=== PATIENT | female | born 1980 | race Caucasian/White ===

== ENCOUNTER → 2016-04-25 | Day surgery (SDC) | payer BC, OTHER ==
[2016-04-24 10:51] VITALS: BMI 47.0
[~2016-04-25] VITALS: Ht 157.5 cm; Wt 115.9 kg
[~2016-04-25] MED LIST: CLB/200 PO; LIDOCAINE HCL 2% 2 ML VIAL (20MG/ML) ONE; LISI-461 PO; MIDAZOLAM HCL 1 MG/ML 2ML VIAL ONE; MULT-506 PO; NXM/40 PO; PROPOFOL IV EMULSION 10 MG/ML 20 ML VIAL IV ONE; RANI300T2 PO
[2016-04-25 08:02] VITALS: Ht 157.5 cm; Wt 115.9 kg
[2016-04-25 08:07] VITALS: TEMP 36.5
--- NOTE | 2016-04-25 09:02 | Endo History and Physical ---
History & Physical Date of Service: Apr 25, 2016. Chief Complaint: GERD AND ACID REFLUX UP AT NIGHT WITH SYMPTOMS Referring Physician: DR FRANCES History of Present Illness GERD Past Surgical History Hx Cardiac Surgery: No Hx Internal Defibrillator: No Hx Pacemaker: No Hx Abdominal Surgery: Yes ( X 2) Hx of Implantable Prosthesis: No Hx Post-Op Nausea and Vomiting: Yes Hx Cancer Surgery: No Hx Thoracic Surgery: No Hx Orthopedic: Yes (RT/LEFT CTR) Hx Urinary Tract Surgery: No Family History Polyp, IBD Social History Smoking Status: Never Smoker Hx Substance Use: Yes (MARIJUANA IN PAST) Hx Alcohol Use: Yes (OCCASIONALLY) Allergies Coded Allergies: NO KNOWN DRUG ALLERGIES (Verified Allergy, Unknown, ., 04/25/16) Current Medications Reported Home Medications Medications Dose Route/Sig Max Daily Dose Days Date Category Multivitamin (Multivitamins) Tab 1 Tab PO QAM 04/24/16 Reported Zantac (Ranitidine HCl) 300 Mg Tab 300 Mg PO HS 04/24/16 Reported Nexium (Esomeprazole Magnesium) 40 Mg Capcr 40 Mg PO QPM 04/24/16 Reported Zestril (Lisinopril) 10 Mg Tab 10 Mg PO QPM 04/24/16 Reported CeleBREX (Celecoxib) 200 Mg Cap 200 Mg PO QPM 04/24/16 Reported Vital Signs Weight (Kilograms): 115.91 Height (Feet): 5 Height (Inches): 2 Date Time Temp Pulse Resp B/P Pulse Ox O2 Delivery O2 Flow Rate FiO2 04/25/16 08:07 36.5 62 20 119/78 97 Room Air Physical Exam General Appearance: no apparent distress Respiratory/Chest: Respiratory effort: no dyspnea Auscultation: breath sounds normal Cardiovascular: Apical Impulse: not displaced Abdomen: Inspection & Palpation: soft Assessment and Plan Reflux - EGD
--- NOTE | 2016-04-25 09:38 | GI REPORT ---
Procedure Date: 04/25/2016 8:59 AM Procedure: Upper GI endoscopy Indications: Follow-up of esophageal reflux - pt describes late nigth awakening with reflux symptoms, on once daily PPI therapy. Medicines: See the Anesthesia note for documentation of the administered medications Complications: Pt had brief hypoxia during procedure that resolved with nasal airway and supplemental oxygen via mask. Estimated Blood Loss: Estimated blood loss: none. Procedure: Pre-Anesthesia Assessment: - ASA Grade Assessment: III - A patient with severe systemic disease. After obtaining informed consent, the endoscope was passed under direct vision. Throughout the procedure, the patient's blood pressure, pulse, and oxygen saturations were monitored continuously. The Scope was introduced through the mouth, and advanced to the second part of duodenum. The upper GI endoscopy was accomplished without difficulty. The patient tolerated the procedure. Findings: There were faint rings in the lower third of the esophagus. The GE junction was at 35 cm. There was a moderate ring at the GE junction. There was some moderate erythema at the GE junction, although no erosions were seen. There was no hiatal hernia. There was a small amount of bilious fluid in the stomach. The stomach mucosa was normal. The duodenum was normal. Biopsies taken from proximal and distal esophagus. Impression: Faint rings in lower esophagus that may be consistent with reflux, PPI- responsive eosinophilic esophagitis, or eosinophlic esophagitis. Schatzki's ring. Non-erosive esophagitis. Recommendation: - Discharge patient to home. Consider increasing nexium to twice daily, or use of Gaviscon Advance (sodium alginate). Weight loss counselling. Leia Tomas M.D. Leia Tomas MD 04/25/2016 9:37:27 AM This report has been signed electronically. Note Initiated On: 04/25/2016 8:59 AM
--- NOTE | 2016-04-25 09:47 | Discharge Instructions ---
Endoscopy Patient Instructions Date / Procedure(s) Performed Apr 25, 2016. EGD Allergy Information Coded Allergies: NO KNOWN DRUG ALLERGIES (Verified Allergy, Unknown, ., 04/25/16) Discharge Date / Findings Apr 25, 2016. Ring, erythema at GE junction Medication Instructions Stopped Medication(s): CELEBREX Provider Instructions Activity Restrictions - No exercising or heavy lifting for 24 hours. - Do not drink alcohol the day of the procedure. - Do not drive a car or operate machinery until the day after the procedure. - Do not make any important decisions or sign important papers in 24 hours after the procedure. Following Day: - Return to full activity which may include returning to work/school. Diet Start your diet with liquids and light foods (jello, soup, juice, toast). Then eat your usual diet if not nauseated. Treatment For Common After Affects For mild abdominal pain, bloating, or excessive gas: - Rest - Eat lightly - Lie on right side Follow-Up Information Follow-up with DR FRANCES as scheduled Anesthesia Information What You Should Know You have had a procedure that required some medicine to reduce anxiety and discomfort. This treatment is called moderate sedation. After receiving the treatment, you may be sleepy, but you will be able to breathe on your own. The effects of the treatment may last for several hours. Follow these instructions along with Activity/Diet recommendations noted above: * Do NOT do anything where dizziness or clumsiness would be dangerous. * Rest quietly at home today, then you can be up and about tomorrow. * Have a responsible person stay with you the rest of today. * You may have had an I.V. today. If so, you may take the dressing off later today. Recommendations Call your doctor if: * Trouble breathing * Continuous vomiting for more than 24 hours * Temperature above 101 degrees * Severe abdominal pain or bloating * Pain not relieved by pain medicine ordered * There is increased drainage or redness from any incision * A large amount of rectal bleeding greater than 2-3 tablespoons. (If you had a polyp/s removed or have hemorrhoids, a small amount of blood - from the rectum is to be expected.) * You have any unanswered questions or concerns. IN THE EVENT OF A SERIOUS EMERGENCY, GO TO THE NEAREST EMERGENCY ROOM Your discharge instructions were prepared by provider Leia Silva. Patient Instructions Signature Page Laura Huntley Patient (or Guardian) Signature/Date: I have read and understand the instructions given to me by my caregivers. Caregiver/RN/Doctor Signature/Date: The above-named patient and/or guardian has received patient instructions on this date. + Original Patient Signature Page (only) stays with chart. Please make copy for patient.
[2016-04-25 10:00] VITALS: BP 127/75; PULSE 82; O2SAT 97
--- NOTE | 2016-04-25 10:58 | Anesthesiology Progress Note ---
Anesthesia Post Op Note Date & Time Apr 25, 2016 at 10:57 Vital Signs Pain Intensity: 0 Vital Signs Past 12 Hours Date Time Temp Pulse Resp B/P Pulse Ox O2 Delivery O2 Flow Rate FiO2 04/25/16 10:00 82 20 127/75 97 Room Air 04/25/16 09:43 81 20 122/75 96 Room Air 04/25/16 09:28 94 20 136/85 94 Room Air 04/25/16 08:07 36.5 62 20 119/78 97 Room Air Notes Mental Status: alert / awake / arousable Nausea / Vomiting: adequately controlled Pain: adequately controlled Airway Patency, RR, SpO2: stable & adequate BP & HR: stable & adequate Hydration State: stable & adequate Anesthetic Complications: no major complications apparent
== END | disposition home or self-care (01) ==
LOC: C.GI 07:26
PROVIDERS: ATTEND Internal Medicine Gastroenterology
DX: Z09 Encounter for follow-up examination after completed treatment for conditions other than malignant neoplasm (principal); K21.9 Gastro-esophageal reflux disease without esophagitis; K22.2 Esophageal obstruction; Z83.79 Family history of other diseases of the digestive system; I10 Essential (primary) hypertension; E66.01 Morbid (severe) obesity due to excess calories; G47.33 Obstructive sleep apnea (adult) (pediatric); Z98.890 Other specified postprocedural states; Z83.71 Family history of colonic polyps; Z68.42 Body mass index [BMI] 45.0-49.9, adult